=== PATIENT | female | born 1945 | race Caucasian/White ===

== ENCOUNTER → 2018-02-21 | Outpatient (CLI) | payer MEDICARE | END | disposition home or self-care (01) | LOC: CVU 13:39 | PROVIDERS: ATTEND Internal Medicine Cardiovascular Disease | DX: I10 Essential (primary) hypertension (principal); R94.31 Abnormal electrocardiogram [ECG] [EKG]; E78.5 Hyperlipidemia, unspecified; I25.2 Old myocardial infarction | CPT/HCPCS: 93306 ==

== ENCOUNTER → 2018-02-22 | Outpatient (CLI) | payer MEDICARE | END | disposition home or self-care (01) | LOC: WOUND 14:35 | PROVIDERS: ATTEND Nurse Practitioner Family | DX: M34.1 CR(E)ST syndrome (principal); L97.916 Non-pressure chronic ulcer of unspecified part of right lower leg with bone involvement without evidence of necrosis; S61.202A Unspecified open wound of right middle finger without damage to nail, initial encounter; S31.829A Unspecified open wound of left buttock, initial encounter; I73.00 Raynaud's syndrome without gangrene; E03.8 Other specified hypothyroidism; I10 Essential (primary) hypertension; M19.90 Unspecified osteoarthritis, unspecified site; E78.5 Hyperlipidemia, unspecified; I25.2 Old myocardial infarction; X58.XXXA Exposure to other specified factors, initial encounter; Y93.89 Activity, other specified; Y92.89 Other specified places as the place of occurrence of the external cause; Y99.8 Other external cause status | CPT/HCPCS: 11042; G0463; WOU0463 ==

== ENCOUNTER → 2018-03-01 | Outpatient (CLI) | payer MEDICARE | END | disposition home or self-care (01) | LOC: WOUND 13:26 | PROVIDERS: ATTEND Nurse Practitioner Family | DX: S61.202D Unspecified open wound of right middle finger without damage to nail, subsequent encounter (principal); S31.829D Unspecified open wound of left buttock, subsequent encounter; L97.916 Non-pressure chronic ulcer of unspecified part of right lower leg with bone involvement without evidence of necrosis; M34.1 CR(E)ST syndrome; E03.8 Other specified hypothyroidism; I10 Essential (primary) hypertension; E78.5 Hyperlipidemia, unspecified; I73.00 Raynaud's syndrome without gangrene; I25.2 Old myocardial infarction; M19.90 Unspecified osteoarthritis, unspecified site; X58.XXXD Exposure to other specified factors, subsequent encounter | CPT/HCPCS: 97597 ==

== ENCOUNTER → 2018-03-22 | Outpatient (CLI) | payer MEDICARE | END | disposition home or self-care (01) | LOC: WOUND 13:13 | PROVIDERS: ATTEND Nurse Practitioner Family | DX: L97.222 Non-pressure chronic ulcer of left calf with fat layer exposed (principal); L97.821 Non-pressure chronic ulcer of other part of left lower leg limited to breakdown of skin; M34.1 CR(E)ST syndrome; I73.00 Raynaud's syndrome without gangrene; E78.5 Hyperlipidemia, unspecified; E03.8 Other specified hypothyroidism; I10 Essential (primary) hypertension; I25.2 Old myocardial infarction; M19.90 Unspecified osteoarthritis, unspecified site | CPT/HCPCS: 15275; 97597; Q4132 ==

== ENCOUNTER → 2018-03-29 | Outpatient (CLI) | payer MEDICARE | END | disposition home or self-care (01) | LOC: WOUND 11:06 | PROVIDERS: ATTEND Internal Medicine Infectious Disease | DX: L89.322 Pressure ulcer of left buttock, stage 2 (principal); L97.222 Non-pressure chronic ulcer of left calf with fat layer exposed; I10 Essential (primary) hypertension; M34.1 CR(E)ST syndrome; I73.00 Raynaud's syndrome without gangrene; E78.5 Hyperlipidemia, unspecified; E03.8 Other specified hypothyroidism; I25.2 Old myocardial infarction; M19.90 Unspecified osteoarthritis, unspecified site | CPT/HCPCS: 15271; 97597; Q4132 ==

== ENCOUNTER → 2018-04-08 | Outpatient (CLI) | payer MEDICARE | END | disposition home or self-care (01) | LOC: WOUND 13:59 | PROVIDERS: ATTEND Family Medicine | DX: L89.322 Pressure ulcer of left buttock, stage 2 (principal); L97.222 Non-pressure chronic ulcer of left calf with fat layer exposed; M34.1 CR(E)ST syndrome; I73.00 Raynaud's syndrome without gangrene; E78.5 Hyperlipidemia, unspecified; E03.8 Other specified hypothyroidism; I10 Essential (primary) hypertension; I25.2 Old myocardial infarction; M19.90 Unspecified osteoarthritis, unspecified site | CPT/HCPCS: 11042 ==

== ENCOUNTER → 2018-04-12 | Outpatient (CLI) | payer MEDICARE | END | disposition home or self-care (01) | LOC: WOUND 14:26 | PROVIDERS: ATTEND Nurse Practitioner Family | DX: L97.222 Non-pressure chronic ulcer of left calf with fat layer exposed (principal); L89.302 Pressure ulcer of unspecified buttock, stage 2; S61.208D Unspecified open wound of other finger without damage to nail, subsequent encounter; M34.1 CR(E)ST syndrome; I73.00 Raynaud's syndrome without gangrene; E78.5 Hyperlipidemia, unspecified; E03.8 Other specified hypothyroidism; I10 Essential (primary) hypertension; I25.2 Old myocardial infarction; M19.90 Unspecified osteoarthritis, unspecified site; X58.XXXD Exposure to other specified factors, subsequent encounter | CPT/HCPCS: 11042 ==

== ENCOUNTER → 2018-04-19 | Outpatient (CLI) | payer MEDICARE | END | disposition home or self-care (01) | LOC: WOUND 13:15 | PROVIDERS: ATTEND Nurse Practitioner Family | DX: L89.322 Pressure ulcer of left buttock, stage 2 (principal); M34.1 CR(E)ST syndrome; I73.00 Raynaud's syndrome without gangrene; E78.5 Hyperlipidemia, unspecified; E03.8 Other specified hypothyroidism; I10 Essential (primary) hypertension; I25.2 Old myocardial infarction; M19.90 Unspecified osteoarthritis, unspecified site | CPT/HCPCS: 15271; 15275; Q4132 ==

== ENCOUNTER → 2018-04-26 | Outpatient (CLI) | payer MEDICARE | END | disposition home or self-care (01) | LOC: WOUND 13:30 | PROVIDERS: ATTEND Nurse Practitioner Family | DX: L89.322 Pressure ulcer of left buttock, stage 2 (principal); M34.1 CR(E)ST syndrome; I73.00 Raynaud's syndrome without gangrene; E78.5 Hyperlipidemia, unspecified; E03.8 Other specified hypothyroidism; I10 Essential (primary) hypertension; I25.2 Old myocardial infarction; M19.90 Unspecified osteoarthritis, unspecified site | CPT/HCPCS: 15275; Q4172 ==

== ENCOUNTER → 2018-05-03 | Outpatient (CLI) | payer MEDICARE | END | disposition home or self-care (01) | LOC: WOUND 13:00 | PROVIDERS: ATTEND Nurse Practitioner Family | DX: L89.322 Pressure ulcer of left buttock, stage 2 (principal); L97.222 Non-pressure chronic ulcer of left calf with fat layer exposed; M34.1 CR(E)ST syndrome; I73.00 Raynaud's syndrome without gangrene; E78.5 Hyperlipidemia, unspecified; E03.8 Other specified hypothyroidism; I10 Essential (primary) hypertension; I25.2 Old myocardial infarction; M19.90 Unspecified osteoarthritis, unspecified site | CPT/HCPCS: 15271; 15275; Q4172 ==

== ENCOUNTER → 2018-05-10 | Outpatient (CLI) | payer MEDICARE | END | disposition home or self-care (01) | LOC: WOUND 11:23 | PROVIDERS: ATTEND Nurse Practitioner Family | DX: L89.322 Pressure ulcer of left buttock, stage 2 (principal); M34.1 CR(E)ST syndrome; I73.00 Raynaud's syndrome without gangrene; E78.5 Hyperlipidemia, unspecified; E03.8 Other specified hypothyroidism; I10 Essential (primary) hypertension; I25.2 Old myocardial infarction; M19.90 Unspecified osteoarthritis, unspecified site | CPT/HCPCS: 15275; Q4172 ==

== ENCOUNTER → 2018-05-17 | Outpatient (CLI) | payer MEDICARE | END | disposition home or self-care (01) | LOC: WOUND 13:14 | PROVIDERS: ATTEND Nurse Practitioner Family | DX: S61.202D Unspecified open wound of right middle finger without damage to nail, subsequent encounter (principal); S31.829D Unspecified open wound of left buttock, subsequent encounter; M34.1 CR(E)ST syndrome; I73.00 Raynaud's syndrome without gangrene; E78.5 Hyperlipidemia, unspecified; E03.8 Other specified hypothyroidism; I10 Essential (primary) hypertension; I25.2 Old myocardial infarction; M19.90 Unspecified osteoarthritis, unspecified site; X58.XXXD Exposure to other specified factors, subsequent encounter | CPT/HCPCS: 15271; 15275; Q4172 ==

== ENCOUNTER → 2018-05-24 | Outpatient (CLI) | payer MEDICARE | END | disposition home or self-care (01) | LOC: WOUND 11:11 | PROVIDERS: ATTEND Nurse Practitioner Family | DX: L97.822 Non-pressure chronic ulcer of other part of left lower leg with fat layer exposed (principal); S61.202D Unspecified open wound of right middle finger without damage to nail, subsequent encounter; S31.829D Unspecified open wound of left buttock, subsequent encounter; M34.1 CR(E)ST syndrome; I73.00 Raynaud's syndrome without gangrene; E78.5 Hyperlipidemia, unspecified; E03.8 Other specified hypothyroidism; I10 Essential (primary) hypertension; I25.2 Old myocardial infarction; M19.90 Unspecified osteoarthritis, unspecified site; X58.XXXD Exposure to other specified factors, subsequent encounter | CPT/HCPCS: 97597 ==